=== PATIENT | male | born 1995 | race African-American/Black ===

== ENCOUNTER 2022-03-28 21:02 | Emergency (ER) | payer SELFPAY ==
[~2022-03-28] VITALS: Ht 167.6 cm; Wt 100.0 kg
[2022-03-28 21:06] VITALS: BP 148/105
== END 2022-03-29 00:51 | disposition left against medical advice (07) ==
LOC: ER 21:02
DX: R10.9 Unspecified abdominal pain (principal)
CPT/HCPCS: 82962; 99281; 99282